=== PATIENT | female | born 1975 | race Two or more races ===

== ENCOUNTER 2020-09-12 19:40 | Emergency (ER) | payer OTHER ==
[~2020-09-12] VITALS: Ht 162.6 cm; Wt 136.1 kg
--- NOTE | 2020-09-12 19:57 | NUR ---
presented to the ER for c/o l sided cp 5/10, radiating to the back x 24 hrs, + sob, - n/v also w/ c/o generalized numbness. pt was placed in bed 3 ER , on monitor. VSS. will cont to monitor
[2020-09-12] MEDS ORDERED: KETOROLAC TROMETHAMINE INJ 30 MG/ML VIAL IV ONE (20:00)
[2020-09-12] MEDS ORDERED: KETOROLAC TROMETHAMINE INJ 30 MG/ML VIAL ONE (20:14)
[2020-09-12 20:19] LABS: BASOPHILS # (AUTO) 0.1 /CMM (0.0-0.2); BASOPHILS % (AUTO) 1.5 % (0.0-2.0); EOSINOPHILS % (AUTO) 2.4 % (0.0-6.0); HEMATOCRIT 43 % (33-45); HEMOGLOBIN 13.9 g/dL (11.5-14.8); LYMPHOCYTES # (AUTO) 3.2 /CMM (0.8-4.8); LYMPHOCYTES % (AUTO) 32.1 % (20.0-44.0); MEAN CORPUSCULAR HGB CONC 33 g/dl (31.0-36.0); MEAN CORPUSCULAR VOLUME 84 fL (82-100); MONOCYTES # (AUTO) 0.5 /CMM (0.1-1.30); NEUTROPHILS # (AUTO) 5.9 /CMM (1.8-8.9); PLATELET COUNT (AUTO) 234 /CMM (150-450)
[2020-09-12 20:30] LABS: CALCIUM, SERUM 8.9 mg/dL (8.5-10.1); CARBON DIOXIDE 24 mmol/L (21-32); CHLORIDE 103 mmol/L (98-107); CREATININE 0.5 mg/dL (0.6-1.3); GLUCOSE 102 mg/dL (74-106); POTASSIUM 3.9 mmol/L (3.5-5.1); SODIUM SERUM 138 mmol/L (136-145); UREA NITROGEN, BLOOD 9 mg/dL (7-18)
--- NOTE | 2020-09-12 21:00 | NUR ---
pt is medically stable for d/c. IV removed. Catheter intact and site benign. Pressure and 4x4 applied to site. No bleeding noted.Patient discharged to home in stable condition. Written and verbal after care instructions given. Patient verbalizes understanding of instruction.
[2020-09-12 21:01] VITALS: BP 142/81
== END 2020-09-12 21:00 | disposition home or self-care (01) ==
LOC: ER 19:42
DX: R07.89 Other chest pain (principal); E66.01 Morbid (severe) obesity due to excess calories; Z68.43 Body mass index [BMI] 50.0-59.9, adult
CPT/HCPCS: 36415; 71045; 80048; 84484; 85025; 93005; 96374; 99285; J1885